=== PATIENT | female | born 1980 | race Caucasian/White ===

== ENCOUNTER 2019-07-16 06:17 | Day surgery (SDC) | payer OTHER ==
[~2019-07-16] VITALS: Ht 160 cm; Wt 79.4 kg
[~2019-07-16 06:17] MED LIST: ACETAMINOPHEN325 MG PO; BUPRENORPHIN-N1 EACH SL; HYDROCODON-ACE1 EAC7 PO
[2019-07-16 07:01] LABS: HCG SERUM NEGATIVE (NEGATIVE)
[2019-07-16 07:14] LABS: HEMATOCRIT 42.8 % (36.0-48.0); HEMOGLOBIN 14.1 g/dL (12-16); MCH 29.7 pg (26.0-34.0); MCHC 32.9 g/dL (31.0-37.0); MCV 90.1 fL (80.0-100.0); MEAN PLATELET VOLUME 10.9 fL (7.4-10.4); RBC 4.75 10x6/uL (4.00-5.40); RDW 13.3 % (11.5-14.5); WBC 4.4 10x3/uL (4.8-10.8)
[2019-07-16 07:24] VITALS: BP 111/66; Ht 160 cm; Wt 79.4 kg
[2019-07-16] MEDS ORDERED: ELIQUIS2.5 MG PO (10:03)
--- NOTE | 2019-07-16 11:25 | NUR ---
PT STATES PAIN OF 12/31. CALLED DR ROSE TO INFORM HIM OF PT'S STATUS. HE ORDERED PERCOCET 10 PO. WILL ADMINISTER PAIN MED.
--- NOTE | 2019-07-16 12:35 | NUR ---
PT'S PAIN LEVEL UNCONTROLLED BY PERCOCET/BLOCK/DILAUDID. CALLING DR. ROSE TO INFORM HIM OF PT'S STATUS.
--- NOTE | 2019-07-16 14:16 | OP ---
PATIENT NAME: THOMAS HIGGINS MEDICAL RECORD: [id number] :80 LOCATION:[facility] ADMISSION DATE: SURGEON: MATHEW ROSE DO DATE OF OPERATION: 07/16/2019 PROCEDURE PERFORMED: Bilateral distal fibula open reduction internal fixation with syndesmotic fixation. PREOPERATIVE DIAGNOSIS: Bilateral distal fibula fractures. POSTOPERATIVE DIAGNOSIS: Bilateral distal fibula fractures. INDICATIONS: Ms. Higgins is a 38-year-old female who fell while doing lawn work and fractured both of her ankles. As she had been walking around on them and had continued pain and got x-rays and saw that she had both of them fractured, the right was displaced more so than the left, but due to factor of bilateral total knee we need to fix both of them and she will be nonweightbearing for about 4-6 weeks and that we would need to fix them and she would be in pain due to the fact that she was on Suboxone. Pain control will be an issue. She was aware of the risks including infection, bleeding, damage to nerves and vessels, need for further surgery, blood clots, and even and she signed the consent. Also aware of the fact of nonunion, malunion, continued pain and damage to the superficial peroneal nerve. I specifically informed her about that and signed the consent. SURGEON: Mathew Rose DO DESCRIPTION OF PROCEDURE: The patient received block by anesthesia in the preoperative area, was taken to the operative suite, laid in supine position, given general anesthetic, given 2 grams of Ancef preoperatively. The bilateral lower extremities were prepped and draped in sterile fashion. We then covered the left wound and began with the right. An Esmarch was used to exsanguinate the right lower extremity. Prior to this, a timeout was performed, everyone was in agreeance with the correct side, site, patient and procedure. We then inflated the tourniquet to 350 mmHg and it was up for 24 minutes on the right side. The incision was then made on the lateral aspect. Careful dissection was made down to the fibula. The superficial peroneal nerve was encountered, but it was retracted out of the way anteriorly. I then made a reduction after cleaning out the fracture site and put the plate on laterally, the Anneliese stainless steel plate. I then locked distally in one of the shaft and locked the most proximal hole. I then stressed the ankle with the medial clear space with external rotation and dorsiflexion, medial clear space did open up. After seeing that, I used a clamp to clamp the joint down and then put a ZipTight across synching that down. I then cut that and did an x-ray to stress view again and did not open up medially. We then let the tourniquet down on the right, irrigated out and the site was closed by Kaveh Davidson, certified surgical event marketing assistant. A lateral x-ray was also taken. The site was closed with 2-0 Vicryl in an interrupted fashion and a ZipLine was placed on the skin. We then addressed the left side and tourniquet was inflated after exsanguinating the left lower extremity. Careful dissection was made down to the fibular fracture, plate was put on and once it was seemed to be in good position, locked distally and then proximally. Used 2 cortical screws and one locking screw. I again stressed the ankle and it also widened medially and then did the same process in clamping it across and then put a ZipTight across, cinching it down nicely, stressed again and not open medially. We then got a lateral and everything seemed to be in OPERATIVE REPORT [id number] THOMAS HIGGINS good position. Tourniquet was let down at 23 minutes on the left and been up at 350 mmHg. Then Kaveh Davidson again irrigated and closed the left side using the same manner with 2-0 Vicryl in an inverted interrupted fashion. ZipLine placed on the incision. I then dressed both sides with Adaptic, 4 x 4's, ABD on the heel and over the incision, cast padding and then a 4 x 30 splint was placed on the patient and secured with 6-inch Avel wrap on both sides. She was then awakened and taken to recovery in stable condition. BLOOD LOSS: Minimal. COMPLICATIONS: None. TRANSINT:[id number] Voice Confirmation ID: [id number] DOCUMENT ID: [id number] MATHEW ROSE DO at 1416 CC: [id number] DICTATION DATE: 07/16/19 1002 GWOT IA/ILO INTELLIGENCE SUPPORT: 07/16/19 [id number] [place] [address]
--- NOTE | 2019-07-16 14:33 | NUR ---
PHYSICAL THERAPY WAS CALLED TO HELP PT INTO WC AND INTO CAR. PT ABLE TO TEACH REGARDING NON-WEIGHT BEARING AND TRANSFERRING INTO CHAIR FROM BED. PT LEFT UNIT VIA WC AT 1410.
== END 2019-07-16 14:10 | disposition home or self-care (01) ==
LOC: D.PAN 06:17 → D.OPS 07:45 → D.PAN 07:45
PROVIDERS: Anesthesiology; ATTEND Orthopaedic Surgery
DX: S82.61XA Displaced fracture of lateral malleolus of right fibula, initial encounter for closed fracture (principal); S82.62XA Displaced fracture of lateral malleolus of left fibula, initial encounter for closed fracture; X58.XXXA Exposure to other specified factors, initial encounter; M25.571 Pain in right ankle and joints of right foot; M25.572 Pain in left ankle and joints of left foot; F17.200 Nicotine dependence, unspecified, uncomplicated

== ENCOUNTER 2020-05-03 15:16 | Inpatient (IN) | payer OTHER ==
[~2020-05-03] VITALS: Ht 160 cm; Wt 90.7 kg
--- NOTE | ~2020-05-03 | HEMODYNAMI ---
PATIENT:THOMAS HIGGINS MEDICAL RECORD: [id number] : 80 [id number] ADMISSION DATE: 05/03/20 Generatedon:111:12 Patient name: THOMAS HIGGINS Patient #: [id number] SSN: DO B: 1980 Date of study: 05/09/2020 Page: Of Hemodynamic Procedure Report Patient Data Patient Demographics First Name: THOMAS Gender: Female Last Name: GISELA : 1980 Patient #: [id number] Age: 39 year(s) Race: Unknown Additional ID: [id number] Contact details Address: [address] [place] [address] State: [place] City: [facility] Zip code: [address] Past Medical History Allergies: No known allergies Admission Admission Data Admission Date: 05/03/2020 Admission Time: 15:16 Room #: .2233 Height (in.): 63 BSA: 1.93 (m2) Height (cm.): 160.02 BMI: 35.25 (kg/m2) Weight (lbs.): 199 Weight (kg.): 90.26 Procedure Procedure Types Cath Procedure Peripheral Cath Diagnostic Procedure PICC PICC Line Placement Procedure Description Procedure Date Procedure Date: 05/09/2020 Procedure Start Time: 10:56 Procedure Staff Name Function Marisa Alexander RT Monument Mason Matt Russell MD Performing Physician ANN DENNIS RT Scrub Chacho MURDOCK RN Nurse Procedure Data Cath Procedure Fluoroscopy Diagnostic fluoroscopy Total fluoroscopy Time: 0.3 time: 0.3 min min Diagnostic fluoroscopy Total fluoroscopy dose: 2 dose: 2 mGy mGy Hemodynamics Rest BSA: 1.93 (m2) O2 Consumption: Estimated: 262.48 (ml/min) O2 Consumption indexed : Estimated:136 (ml/min/m) Pre Cath Intra NCS Post Cath Procedure Log Time Note 10:41:11 Patient Height : 63 inches 10:41:28 Patient Weight : 199 lbs 10:42:04 Time tracking: Regular hours (M-F 7:00 - 5:00) 10:42:18 Patient received from Med/Surg to IR Alert and oriented. Tansferred to table in Supine position. 10:42:31 Patient allergic to No known allergies 10:42:43 Right Arm area was prepped with chlora-prep and draped in sterile fashion 10:42:49 - 10:43:10 Use device set PICC 10:43:13 SHIELD Sorbaview ([id number]) opened to sterile field. 10:43:14 Sterile Angiographic Pack opened to sterile field. 10:43:15 Bag Decanter ([id number]) opened to sterile field. 10:43:24 - 10:56:02 Physician arrived 10:56:03 Final Timeout: patient, procedure, and site verified with staff and physician. All members of the team are in agreement. 10:56:03 --------ALL STOP TIME OUT------ 10:56:30 Procedure started. 10:56:31 Full Disclosure recording started 10:56:37 Local anesthetic to right arm with Lidocaine 1% by Matt Russell MD.INITIAL ACCESS ONLY 11:00:07 PowerPICC 5Fr double lumen catheter opened to sterile field. 11:02:00 PICC line was trimmed to 35cm and advanced to the superior vena cava.Position verified under fluoroscopy. 11:03:56 SUTURE ETHILON 2-0 BLK MONO FS opened to sterile field. 11:05:01 Procedure ended.(Physican Out) 11:05:05 Fluoroscopy time 00.30 minutes. 11:05:09 Fluoroscopy dose: 2 mGy 11:05:09 Flurop Dose total: 2 11:05:25 Procedure and supply charges have been captured, reviewed, submitted an d are correct. 11:05:57 Report given to Med/Surg. 11:06:19 Full Disclosure recording stopped Device Usage Item Name Manufacture Quantity Catalog Hospital Part Current Minimal Lot# / Number Charge Number Stock Stock Serial# Code VICK Centurion 1 [id number] 5 Sorbaview ([id number]) Sterile Cardinal 1 [id number] [id number] 5 Angiographic Health Pack Bag Decanter Microtek 1 [id number] [id number] [id number] 5 () Medical Inc. PowerPICC Bard 1 [id number] 262923 911766 [id number] 5 5Fr double lumen catheter SUTURE Ethicon 1 [id number] 5 ETHILON 2-0 BLK MONO FS Signature Audit [place] Stage Time Signature Unsigned Intra-Procedure 05/09/2020 Marisa Alexander RT(R) 11:07:51 AM RT(R) 05/09/2020 11:11:03 AM Intra-Procedure 05/09/2020 Marisa Alexander 11:12:06 AM RT(R) [facility] [address] [place] [address]
--- NOTE | ~2020-05-03 | HEMODYNAMI ---
PATIENT:THOMAS HIGGINS MEDICAL RECORD: [id number] : 80 LOCATION:[facility] ADMISSION DATE: 05/03/20 Generatedon:111:36 Patient name: THOMAS HIGGINS Patient #: [id number] SSN: DO B: 1980 Date of study: 05/04/2020 Page: Of Hemodynamic Procedure Report Patient Data Patient Demographics Procedure consent was obtained First Name: THOMAS Gender: Female Last Name: GISELA : 1980 Patient #: [id number] Age: 39 year(s) Race: Unknown Additional ID: [id number] Contact details Address: [address] [place] [address] State: [place] City: [facility] Zip code: [address] Admission Admission Data Admission Date: 05/03/2020 Admission Time: 15:16 Room #: D.2233 Procedure Procedure Types Cath Procedure Peripheral Cath Diagnostic Procedure Miscellaneous Procedure Description Procedure Date Procedure Date: 05/04/2020 Procedure Start Time: 11:33 Procedure Staff Name Function José Miguel Moctezuma MD Performing Physician Marco Antonio Cabral RT Monitor ANN DENNIS RT Scrub Bailey Avendaño RN Nurse Marielena Brown RN Nurse Procedure Data Cath Procedure Fluoroscopy Diagnostic fluoroscopy Total fluoroscopy Time: 0.4 time: 0.4 min min Diagnostic fluoroscopy Total fluoroscopy dose: 5 dose: 5 mGy mGy Hemodynamics Rest Pre Cath Intra NCS Post Cath Procedure Log Time Note 11:11:18 PICC 11:11:20 Time tracking: Regular hours (M-F 7:00 - 5:00) 11:11:24 Marco Antonio STEINER (R) (CV) sent for patient. Start room use. 11:11:48 Patient received from Med/Surg to IR Alert and oriented. Tansferred to table in Supine position. 11:11:50 Signed procedure consent form obtained from patient. 11:11:51 Pre-procedure instructions explained to patient. 11:11:53 Use device set IR Diagnostic 11:11:55 Bag Decanter () opened to sterile field. 11:11:56 Sterile Angiographic Pack opened to sterile field. 11:11:56 Tegaderm 4 x 4 ([id number]) opened to sterile field. 11:12:15 PowerPICC 5Fr double lumen catheter opened to sterile field. 11:12:17 SHIELD Sorbaview ([id number]) opened to sterile field. 11:12:33 Pre-op teaching completed and patient verbalized understanding. 11:26:37 Right Arm area was prepped with chlora-prep and draped in sterile fashion 11::39 --------ALL STOP TIME OUT------ 11::39 Final Timeout: patient, procedure, and site verified with staff and physician. All members of the team are in agreement. 11:26:45 Sedation plan: Local Anesthetic Medication:Lidocaine 11:26:54 Procedure started. 11:27:05 Full Disclosure recording started 11:33:00 Local anesthetic to right arm with Lidocaine 1% by José Miguel Moctezuma MD.INITIAL ACCESS ONLY 11:33:04 Venous access obtained using ultrasound guidance. 11:33:13 PICC line was trimmed to 33cm and advanced to the superior vena cava.Position verified under fluoroscopy. 11:33:55 Procedure ended.(Physican Out) 11:35:13 Fluoroscopy time 00.40 minutes. 11:35:17 Fluoroscopy dose: 5 mGy 11:35:17 Flurop Dose total: 5 11:35:54 RT ARM STABLE STATLOCK BI PATCH AND SORBA VIEW DRESSING APPLIED 11:35:59 Report given to Med/Surg. 11:36:03 Patient transfered to Med/Surg with Bed. Device Usage Item Name Manufacture Quantity Catalog Hospital Part Current Minimal Lot# / Number Charge Number Stock Stock Serial# Code Bag Decanter Microtek 1 [id number] 5 () Medical Inc. Sterile Cardinal [address] [id number] 5 Angiographic Health Pack Tegaderm 4 x 3M 1 1626W [id number] [id number] [id number] 5 4 (1626W) PowerPICC Bard 1 [id number] 338921 843580 149273 5 5Fr double lumen catheter SHIELD Centurion 1 [id number] 746303 861106 [id number] 5 Sorbaview ([id number]) Signature Audit Melvin Stage Time Signature Unsigned Intra-Procedure 05/04/2020 Marco Antonio 11:36:24 AM [facility] (CV) [facility] [address] [place] [address]
[~2020-05-03 15:16] MED LIST changes: +ELIQUIS2.5 MG PO
[2020-05-03] MEDS ORDERED: CELEXA20 MG PO (15:54)
[2020-05-03] MEDS ORDERED: SUBOXONE 2 MG-01 TAB SL (15:54)
[2020-05-03 16:02] VITALS: BMI 35.5
[2020-05-03 16:06] LABS: HCG URINE NEGATIVE (NEGATIVE)
[2020-05-03 16:36] LABS: BASOPHILS 0.4 % (0-2); EOSINOPHILS 0.3 % (0-7); HEMATOCRIT 42.7 % (36.0-48.0); HEMOGLOBIN 14.4 g/dL (12-16); IMMATURE GRANULOCYTES 0.3 % (0-5); LYMPHOCYTE ABS# 1.55 10x3/uL (1.18-3.74); LYMPHOCYTES 22.5 % (15-50); MCH 30.6 pg (26.0-34.0); MCHC 33.7 g/dL (31.0-37.0); MCV 90.9 fL (80.0-100.0); MEAN PLATELET VOLUME 12.1 fL (7.4-10.4); MONOCYTES 4.5 % (2-11); NEUTROPHIL ABS# 4.97 10x3/uL (1.56-6.13); PLATELET COUNT 259 10x3/uL (130-400); RDW 13.7 % (11.5-14.5); WBC 6.9 10x3/uL (4.8-10.8)
[2020-05-03 16:54] LABS: C-REACTIVE PROTEIN 1.5 mg/dL (0.0-0.9); CALC OSMOLALITY 264 mosm/kg (275-300); CALCIUM 9.5 mg/dL (8.5-10.1); CARBON DIOXIDE 29.2 mmol/L (21.0-32.0); CHLORIDE - SERUM 100 mmol/L (98-107); CREATININE - SERUM 0.4 mg/dL (0.6-1.3); GLUCOSE 92 mg/dL (74-106); SODIUM 133 mmol/L (136-145); UREA NITROGEN 9 mg/dL (7-18); eGFR NON AFRICAN AMERICAN > 90 mL/min (90-120)
[2020-05-03 17:50] LABS: ERYTHROCYTE SEDIMENTATION RATE 24 mm/hr (0-20)
--- NOTE | 2020-05-03 18:41 | NUR ---
PT READY FOR PH 1 D/C - ROOM NOT CLEAN ON FLOOR, SWITCHING TO PH 2 PROTOCOL
[2020-05-03 19:34] VITALS: BP 109/55
[2020-05-03 22:42] VITALS: BMI 35.5
--- NOTE | 2020-05-03 22:47 | NUR ---
I have reviewed this patient and I concur with the Shift Assessment completed by the Licensed Practical Nurse today this shift.
[2020-05-03 23:54] VITALS: BP 112/71
--- NOTE | 2020-05-04 08:15 | OP ---
PATIENT NAME: THOMAS HIGGINS MEDICAL RECORD: [id number] :80 LOCATION:D.[facility]33 ADMISSION DATE:05/03/20 SURGEON: MATHEW ROSE DO DATE OF OPERATION: 05/03/2020 PROCEDURE PERFORMED: Left ankle hardware removal with irrigation and debridement. PREOPERATIVE DIAGNOSIS: Infection of the left ankle. POSTOPERATIVE DIAGNOSIS: Infection of the left ankle. INDICATIONS: Ms. Higgins is a 39-year-old female who had ankle open reduction and internal fixation bilaterally back in June. She was doing well until just a few days ago, she started to have increased pain and swelling and then came to the clinic today and had purulent drainage out of the lateral incision of her left ankle. She was n.p.o. and came over, directly admitted to the hospital and I told her I would remove it and get cultures and she will probably be on IV antibiotics for 4-6 weeks. We would figure out what bug it was before I put on specific antibiotics. She is okay with all that and was aware of the risks including osteomyelitis, continued pain, need for further surgery, fracture, bleeding, damage to nerves and vessels in the area, blood clots and even and she signed the consent. SURGEON: Mathew Rose DO. DESCRIPTION OF PROCEDURE: The patient was taken to the operative suite after getting a block by anesthesia in preoperative area and laid in supine position, given general anesthetic and LMA was placed. The left lower extremity was then prepped and draped in sterile fashion. Timeout was performed. Everyone was in agreement with correct side, site, patient and procedure. I then began by making an incision over the old lateral incision and roge purulence poured out of the more proximal part of the incision. I then cultured it. I then removed the plate and irrigated with 3 liters normal saline, debriding at that time with a rongeur any devitalized tissue and with the rongeur also nipping at the bone, debriding it as well. I then went to the medial side and got the ZipTight button through a small incision and removed it. We then closed the medial side with 2-0 Prolene in a horizontal mattress fashion as well as the lateral side. She was then dressed with Adaptic and 4 x 4 on the medial side and placed the Prevena Plus on the lateral side. This was all secured with a cast padding and 6-inch Avel wrap. She was awakened and taken to recovery in stable condition. Antibiotics were given after getting cultures, 1 g of vancomycin. COMPLICATIONS: None. TRANSINT:[id number] Voice Confirmation ID: [id number] DOCUMENT ID: [id number] OPERATIVE REPORT [id number] THOMAS HIGGINS MICHAEL D, DO at 0815 CC: [id number] DICTATION DATE: 05/03/201749 RESEARCH MANAGEMENT ASSOCIATE: 05/04/20 0100 ADM IN [facility] [address] [id number]
--- NOTE | 2020-05-04 08:25 | NUR ---
CALLED PHARMACY FOR PATIENT'S SUBOXONE. STATES WILL BRING.
--- NOTE | 2020-05-04 09:00 | NUR ---
ALERT AND ORIENTED. ASSESSMENT COMPLETE. STATES FOOT STILL NUMB FROM SURGERY. SCD PLACED ON RIGHT LEG AND EDUCATION PROVIDED. DENIES FURTHER NEEDS. BED LOW. CALL CUELLO AND PERSONAL ITEMS IN REACH. WILL CONTINUE TO MONITOR.
[2020-05-04 09:11] VITALS: BP 148/83
--- NOTE | 2020-05-04 12:02 | NUR ---
RETURNED FROM PICC PLACEMENT. RIGHT IJ REMOVED WITH TIP INTACT PER ORDER. PRESSURE APPLIED. DRSG TO SITE C/D/I. NO BLEEDING NOTED. PATIENT INSTRUCTED TO LIE FLAT 15 MINUTES.
[2020-05-04 13:22] VITALS: BP 115/54
[2020-05-04 16:48] VITALS: BP 119/59
[2020-05-04 20:00] VITALS: BP 100/49
[2020-05-05] VITALS: BP 107/59
[2020-05-05 04:00] VITALS: BP 104/64
--- NOTE | 2020-05-05 04:43 | NUR ---
I have reviewed this patient and I concur with the Shift Assessment completed by the Licensed Practical Nurse today this shift.
[2020-05-05 08:26] VITALS: BP 109/67
[2020-05-05 11:58] VITALS: BP 128/69
[2020-05-05 12:57] VITALS: Ht 160 cm; Wt 90.7 kg
[2020-05-05 16:00] VITALS: BP 103/66
--- NOTE | 2020-05-05 19:10 | NUR ---
RECEIVED REPORT, ASSUMED CARE, BREATHING EVEN UNLABORED, CALL LIGHT IN REACH, BED LOWEST POSITION, DENIES NEEDS, IV PATENT, ENCOURAGED PT TO NOTIFY STAFF WITH ANY NEEDS
[2020-05-05 20:09] VITALS: BP 109/52
[2020-05-06 00:52] VITALS: BP 93/54
--- NOTE | 2020-05-06 04:21 | NUR ---
I have reviewed this patient and I concur with the Shift Assessment completed by the Licensed Practical Nurse today this shift.
[2020-05-06 05:14] VITALS: BP 120/68
[2020-05-06 06:08] LABS: CREATININE - SERUM 0.7 mg/dL (0.6-1.3); VANCOMYCIN - TROUGH 19.8 ug/mL (10.0-20.0)
--- NOTE | 2020-05-06 07:42 | NUR ---
RESTING IN BED WITH EYES OPEN, ALERT AND ORIENTED. PICC LOCATED TO RIGHT ARM RUNNING 1/2NS@ 50ML/HR. REPORTS PAIN 12/31, ADMINISTERED TORADOL PER DRS ORDERS. DENIES FURTHER NEEDS, WILL CONT TO MONITOR.
[2020-05-06 08:30] VITALS: BP 107/62
--- NOTE | 2020-05-06 11:56 | NUR ---
PT REPORTS PAIN /10, ADMINISTERED VISTERIL PER DRS ORDERS.
[2020-05-06 12:47] VITALS: BP 116/51
[2020-05-06 17:11] VITALS: BP 92/55
--- NOTE | 2020-05-06 19:05 | NUR ---
RECEIVED REPORT, ASSUMED CARE, BREATHING EVEN UNLABORED, CALL LIGHT IN REACH, BED LOWEST POSITION, DENIES NEEDS, IV PATENT, ENCOURAGED PT TO NOTIFY STAFF WITH ANY NEEDS
[2020-05-06 20:00] VITALS: BP 95/53
[2020-05-07] VITALS: BP 86/35
--- NOTE | 2020-05-07 01:19 | NUR ---
I have reviewed this patient and I concur with the Shift Assessment completed by the Licensed Practical Nurse today this shift.
[2020-05-07 04:00] VITALS: BP 85/40
[2020-05-07 05:16] LABS: BASOPHILS 0.4 % (0-2); EOSINOPHILS 3.1 % (0-7); HEMATOCRIT 33.3 % (36.0-48.0); HEMOGLOBIN 10.6 g/dL (12-16); LYMPHOCYTE ABS# 1.54 10x3/uL (1.18-3.74); LYMPHOCYTES 31.6 % (15-50); MCH 29.1 pg (26.0-34.0); MCHC 31.8 g/dL (31.0-37.0); MCV 91.5 fL (80.0-100.0); MEAN PLATELET VOLUME 11.6 fL (7.4-10.4); MONOCYTES 6.6 % (2-11); NEUTROPHIL ABS# 2.84 10x3/uL (1.56-6.13); NEUTROPHILS 58.3 % (40-80); RBC 3.64 10x6/uL (4.00-5.40); RDW 13.9 % (11.5-14.5); WBC 4.9 10x3/uL (4.8-10.8)
[2020-05-07 05:27] LABS: PLATELET COUNT 159 10x3/uL (130-400)
[2020-05-07 05:49] LABS: CALC OSMOLALITY 275 mosm/kg (275-300); CALCIUM 7.8 mg/dL (8.5-10.1); CARBON DIOXIDE 25.4 mmol/L (21.0-32.0); CHLORIDE - SERUM 107 mmol/L (98-107); CREATININE - SERUM 0.7 mg/dL (0.6-1.3); GLUCOSE 78 mg/dL (74-106); POTASSIUM - SERUM 3.8 mmol/L (3.5-5.1); SODIUM 139 mmol/L (136-145); UREA NITROGEN 11 mg/dL (7-18); eGFR NON AFRICAN AMERICAN > 90 mL/min (90-120)
--- NOTE | 2020-05-07 07:34 | NUR ---
PT RESTING IN BED WITH EYES OPEN CALL LIGHT IN REACH WILL MONITER
[2020-05-07 08:09] VITALS: BP 117/63
[2020-05-07 13:58] VITALS: BP 131/84
[2020-05-07 17:02] VITALS: BP 124/64
--- NOTE | 2020-05-07 18:00 | NUR ---
PT RESTING IN BED WITH EYES OPEN CALL LIGHT IN REACH WILL MONITER
[2020-05-07 20:00] VITALS: BP 127/76
--- NOTE | 2020-05-07 22:52 | NUR ---
PT CALLED AT 1900 STATING SHE HAS A LIGHT RASH TO R ARM. STATED HAD SAME RASH AFTER 1ST DOSE OF ANCEF GIVEN. BENADRYL 25MG IVP GIVNE AT 1910 HRS. ASSESSMENT COMPLETED AT 1945 HRS. VSS. ALERT AND ORIENTED TO PERSON,PLACE AND TIME. [place]. PALPABLE PERIPHERAL PULSES. PICC LINE TO R ARM WITH 1/2NS AT 50CC/HR. IV PATENT. LUNGS CTA. ABD SOFT WITH ACTIVE BS NOTED. RASH TO INNER R ARM DIMINISHED AFTER BENADRYL ADMINISTRATION. PT DENIED ANY SOB OR DIFFICULTY SWALLOWING. RASH ONLY FOUND ON R ARM. WOUND VAC TO OUTER L ANKLE WITH SCANT BROWN EXUDATE NOTED. DRESSING CLEAN, DRY AND INTACT. PM MEDS GIVEN. DR MIRANDA PAGED AT 2215 HRS. RETUNED PAGE AT 2019 HRS. INFORMED OF PT'S RASH TO R ARM WITH ANCEF AND PT'S DENIAL OF ANY SOB OR THROAT SWELLING. INFORMED RASH DIMINSHED AFTER BENADRYL ADMINISTRATION. DR MIRANDA STATED TO GIVEN BENADRYL PRIOR TO ANCEF ADMINISTRATION. PT CURRENTLY WATCHNG TV. SR UP X1, CALL LIGHT WITHIN REACH.
[2020-05-08] VITALS: BP 91/34
--- NOTE | 2020-05-08 00:36 | NUR ---
PT RESTING WITH EYES CLOSED. RESP EVEN AND REGULAR. SR UP X1, CALL LIGHT WITHIN REACH.
--- NOTE | 2020-05-08 02:03 | NUR ---
PT RESTING WITH EYES CLOSED. RESP EVEN AND REGULAR. SR U P X1, CALL LIGHT WITHIN REACH.
[2020-05-08 04:00] VITALS: BP 125/86
--- NOTE | 2020-05-08 04:58 | NUR ---
NO RASH NOTED AFTER BENADRYL ADMINISTRATION. REQUESTS TORADOL FOR C/O INCISIONAL PAIN. SR UP X1, CALL LIGHT WITHIN REACH.
--- NOTE | 2020-05-08 05:20 | NUR ---
PT HAS C/O N/V AND ABD PAIN. TORADOL 15MG, ZOFRAN 4MG IVP GIVEN.
[2020-05-08 06:08] LABS: BASOPHILS 0.3 % (0-2); EOSINOPHILS 2.6 % (0-7); HEMATOCRIT 39.1 % (36.0-48.0); HEMOGLOBIN 12.7 g/dL (12-16); LYMPHOCYTE ABS# 2.05 10x3/uL (1.18-3.74); MCH 29.3 pg (26.0-34.0); MCHC 32.5 g/dL (31.0-37.0); MCV 90.1 fL (80.0-100.0); MEAN PLATELET VOLUME 11.7 fL (7.4-10.4); MONOCYTES 7.2 % (2-11); NEUTROPHIL ABS# 3.54 10x3/uL (1.56-6.13); NEUTROPHILS 56.9 % (40-80); RBC 4.34 10x6/uL (4.00-5.40); RDW 13.6 % (11.5-14.5)
--- NOTE | 2020-05-08 06:35 | NUR ---
PT CURRENTLY RESTING WITH EYES CLOSED. RESP EVEN AND REGULAR. VSS THROUGHOUT NIGHT. NEEDS MET; WILL CONTINUE TO MONITOR.
[2020-05-08 06:50] LABS: ANION GAP 12.4 mmol/L (8-16); CARBON DIOXIDE 26.5 mmol/L (21.0-32.0); PLATELET COUNT 194 10x3/uL (130-400); POTASSIUM - SERUM 3.9 mmol/L (3.5-5.1); WBC 6.2 10x3/uL (4.8-10.8)
[2020-05-08 06:56] LABS: CREATININE - SERUM 0.9 mg/dL (0.6-1.3)
--- NOTE | 2020-05-08 07:32 | NUR ---
PATIENT C/O ABD CRAMPS AND N/V ALL NIGHT STATES SHE CAN NOT HANDLE ANYMORE. PT HAD ZOFRAN AND TORADOL EARLIER TOO SOON TO ADMINISTER, DID GIVE PRN PAIN MEDICTION. CONTINUE WITH PLAN OF CARE
--- NOTE | 2020-05-08 08:20 | NUR ---
RECEIVED WRITTEN ORDER FOR PHENEGREN ADMINISTERED WITH AM MEDS PT THEN ASKED FOR SOMETHING FOR ANXIETY. RECEIVED ORDER FOR .5 ATIVAN TID PRN. CONTINUE WITH PLAN OF CARE
[2020-05-08 09:12] VITALS: BP 167/86
--- NOTE | 2020-05-08 11:39 | NUR ---
PATIENT REQUESTED PAIN MEDICATION STATING PAIN IS AT A 10, ADMINISTERED PRN MEDICATION, CONTINUE WITH PLAN OF CARE
--- NOTE | 2020-05-08 11:43 | NUR ---
PATIENT REQUESTED ANXIETY MEDICATION WELL, INFORMED HER SHE CAN ONLY HAVE IT 3 TIMES A DAY NEEDED AND IF SHE TAKES ONE NOW SHE WILL ONLY HAVE ONE LEFT FOR THE REST OF THE EVBENING. PATIENT CLOSED EYES IF ASLEEP AND NOT LISTENING. CL IN REACH. CONTINUE WITH PLAN OF CARE
[2020-05-08 12:36] VITALS: BP 173/96
--- NOTE | 2020-05-08 16:32 | NUR ---
PATIENT PICC LINE DRESSING CAME OFF, CHANGED DRESSING AND RESTARTED FLUIDS. NO OTHER NEEDS AT THIS TIME. CONTINUE WITH PLAN OF CARE
[2020-05-08 17:13] VITALS: BP 196/98
--- NOTE | 2020-05-08 18:45 | NUR ---
I have reviewed this patient and I concur with the Shift Assessment completed by the Licensed Practical Nurse today this shift.
--- NOTE | 2020-05-08 19:30 | NUR ---
RECEIVED BEDSIDE REPORT. PT LAYING IN BED A&O X4. PICC LINE TO RIGHT UPPER ARM, PATENT AND INFUSING, NO REDNESS OR SWELLING. INCISION TO LEFT ANKLE, DRSG C/D/I, RODERICK WRAP IN PLACE, WOUND VAC PATENT AND IN PLACE. PT ABLE TO AMBUALTE WITH ASSIST. EDUCATED PT ON CL AND NEEDS, VERBALIZED UNDERSTANDING. BED LOW, CL IN REACH.
[2020-05-08 21:32] VITALS: BP 141/83
--- NOTE | 2020-05-08 22:26 | NUR ---
ORIENTATION & MOBILITY SPECIALIST ASSISTED PT WITH SHOWER AND FULL LININ AND GOWN CHANGE, TOLERATED WELL. BED LOW, CL IN REACH.
--- NOTE | 2020-05-08 23:00 | NUR ---
PT C/O ANXIETY, PROVIDED MEDS PER ORDER, TOLERATED WELL. BED LOW, CL IN REACH.
[2020-05-09 00:23] VITALS: BP 115/54
--- NOTE | 2020-05-09 01:02 | NUR ---
PT LAYING IN BED, EYES CLOSED EVEN RESPIRATIONS. BED LOW, CL IN REACH.
--- NOTE | 2020-05-09 04:00 | NUR ---
PT C/O PAIN 8/10, SHARP IN LEFT ANKLE, PROVIDED MEDS PER ORDER, TOLERATED WELL. BED LOW, CL IN REACH.
[2020-05-09 04:23] VITALS: BP 119/55
--- NOTE | 2020-05-09 04:49 | NUR ---
ATTEMPTED TO FLUSH PICC LINE TO UPPER RIGHT ARM, WILL NOT FLUSH ON ONE SIDE, MINIMALLY FLUSHES ON OTHER SIDE. PT STATES THAT WHEN THE DRESSING WAS CHANGED SHE FELT THE CATHETER BEING PULLED, SHE DENIES ANY PAIN AT SITE. NO REDNESS OR SWELLING. ENTERED CONSULT TO MD TO ASSESS PICC LINE. WILL CONTINUE TO MONITOR.
[2020-05-09 07:33] LABS: CALC OSMOLALITY 270 mosm/kg (275-300); CALCIUM 8.7 mg/dL (8.5-10.1); CARBON DIOXIDE 27.2 mmol/L (21.0-32.0); CHLORIDE - SERUM 103 mmol/L (98-107); CREATININE - SERUM 0.7 mg/dL (0.6-1.3); GLUCOSE 87 mg/dL (74-106); POTASSIUM - SERUM 3.5 mmol/L (3.5-5.1); SODIUM 137 mmol/L (136-145); eGFR NON AFRICAN AMERICAN > 90 mL/min (90-120)
[2020-05-09 07:35] LABS: UREA NITROGEN 7 mg/dL (7-18)
[2020-05-09 08:32] VITALS: BP 133/80
[2020-05-09 09:24] LABS: BASOPHILS 0.2 % (0-2); EOSINOPHILS 0.8 % (0-7); HEMATOCRIT 39.3 % (36.0-48.0); HEMOGLOBIN 13.2 g/dL (12-16); IMMATURE GRANULOCYTES 0.2 % (0-5); LYMPHOCYTE ABS# 1.28 10x3/uL (1.18-3.74); LYMPHOCYTES 25.4 % (15-50); MCH 29.8 pg (26.0-34.0); MCHC 33.6 g/dL (31.0-37.0); MCV 88.7 fL (80.0-100.0); MEAN PLATELET VOLUME 11.4 fL (7.4-10.4); MONOCYTES 10.1 % (2-11); NEUTROPHIL ABS# 3.19 10x3/uL (1.56-6.13); NEUTROPHILS 63.3 % (40-80); PLATELET COUNT 171 10x3/uL (130-400); RBC 4.43 10x6/uL (4.00-5.40); RDW 13.5 % (11.5-14.5)
[2020-05-09] MEDS ORDERED: Vibramycin 100 MG/D5 IV (10:47)
[2020-05-09] MEDS ORDERED: VISTARIL50 MG PO (10:47)
[2020-05-09] MEDS ORDERED: ATIVAN0.5 MG PO (10:48)
[2020-05-09] MEDS ORDERED: ZOFRAN ODT4 MG/UDTAB PO (11:17)
--- NOTE | 2020-05-09 12:19 | MORECARE ---
CASE MANAGEMENT DISCHARGE SUMMARY PATIENT: THOMAS HIGGINS UNIT: [id number] ADM DATE: 05/03/20 AGE: 39 : [birth year] SEX: F ROOM/BED: D.2233 AUTHOR: TASHA VELAZCO PHYSICIAN: REFERRING PHYSICIAN: MARYJANE ROSE DO DATE OF SERVICE: 05/09/20 Discharge Plan Patient Name: THOMAS HIGGINS Facility: [facility]:[place] : 1980 Planned Disposition: Anticipated Discharge Date: Discharge Date: Expected LOS: Initial Reviewer: [email or web address] Initial Review Date: 05/03/2020 Generated: 05/09/20 1:18 pm Comments DCP- Discharge Planning Updated by [email or web address]: Lavern Rendon on 05/09/20 11:[address] Patient Name: THOMAS HIGGINS Admission Status: Elective Accout number: [id number] Admission Date: 05-03-2020 : 1980 Admission Diagnosis:PYOGENIC ARTHRITIS, UNSPECIFIED Attending: MARYJANE ROSE Current LOS: 6 Anticipated DC Date: Planned Disposition: Primary Insurance: [employer]ED MEDICA[employer] Discharge Planning Comments: CM MET WITH PATIENT AT BEDSIDE AFTER OBTAINING VERBAL CONSENT. DISCUSSED AVAILABILITY/NEEDS OF HOME HEALTH, REHAB, AND MEDICAL EQUIPMENT. PATIENT WILL NEED IV ANTIBIOTICS AND HOME HEALTH. REFERRAL FAXED TO [facility] FOR IV ANTIBIOTICS AND CARE 4 FOR HOME HEALTH. WAITING CALL BACK TO SEE IF IV ANTIBIOTICS CAN BE SET UP TODAY AND HOME HEALTH START OF CARE TOMORROW. PATIENT VERBALLY AGREES TO BOTH COMPANIES FOR DC. CM TO FOLLOW AND ASSIST NEEDED. Travel Counselor: Lavern Rendon DCP- Discharge Planning Updated by [email or web address]: Lavern Rendon on 05/09/20 10:[address] Patient Name: THOMAS HIGGINS Admission Status: Elective Accout number: [id number] Admission Date: 05-03-2020 : 1980 Admission Diagnosis:PYOGENIC ARTHRITIS, UNSPECIFIED Attending: MARYJANE ROSE Current LOS: 6 Anticipated DC Date: Planned Disposition: Primary Insurance: [employer] MA[employer]ED MEDICAID Discharge Planning Comments: I HAVE FAXED REFERRAL TO [facility] FOR IV INFSUIONS, I M WAITING CALL BACK TO SEE WHEN THEY CAN START. CM FOLLOWING. Travel Counselor: Lavern Rendon DCPIA - Discharge Planning Initial Assessment Updated by [email or web address]: Lavern Rendon on 05/09/20 12:16 pm * Is the patient Alert and Oriented? Yes * PCP MARGARITALIVEN * Preadmission Environment Home with Family * ADLs Independent * Community resources currently utilized None * Additional services required to return to the preadmission environment? Yes * Can the patient safely return to the preadmission environment? Yes * Has this patient been hospitalized within the prior 30 days at any hospital? No External Providers External Provider: [facility] Next Contact Date: Service Request Date: Service Type: Resolution: Reviewer: Comments: External Provider: [facility] Next Contact Date: Service Request Date: Service Type: Resolution: Reviewer: Comments: Patient Name: THOMAS HIGGINS Page [phone] at 1219 All edits/amendments must be made on the electronic document DICTATION DATE: 05/09/201217 MARINE DRILLER: ANSLEY 05/09/201217 RPT#: [id number] DC DATE: STATUS: ADM IN [facility] [address] [place] [address] END OF REPORT
--- NOTE | 2020-05-09 12:45 | MORECARE ---
CASE MANAGEMENT DISCHARGE SUMMARY PATIENT: THOMAS HIGGINS UNIT: [id number] ADM DATE: 05/03/20 AGE: 39 : 80 SEX: F ROOM/BED: D.2233 AUTHOR: TASHA VELAZCO PHYSICIAN: REFERRING PHYSICIAN: MARYJANE ROSE DO DATE OF SERVICE: 05/09/20 Discharge Plan Patient Name: THOMAS HIGGINS Facility: [facility]:[place] : 1980 Planned Disposition: Anticipated Discharge Date: Discharge Date: Expected LOS: Initial Reviewer: [id number] Initial Review Date: 05/03/2020 Generated: 05/09/20 1:45 pm Comments DCP- Discharge Planning Updated by [email or web address]: Lavern Rendon on 05/09/20 11:[address] Patient Name: THOMAS HIGGINS Admission Status: Elective Accout number: [id number] Admission Date: 05-03-2020 : 1980 Admission Diagnosis:PYOGENIC ARTHRITIS, UNSPECIFIED Attending: MARYJANE ROSE Current LOS: 6 Anticipated DC Date: Planned Disposition: Primary Insurance: [employer] MA[employer]GED MEDICAID Discharge Planning Comments: CM MET WITH PATIENT AT BEDSIDE AFTER OBTAINING VERBAL CONSENT. DISCUSSED AVAILABILITY/NEEDS OF HOME HEALTH, REHAB, AND MEDICAL EQUIPMENT. PATIENT WILL NEED IV ANTIBIOTICS AND HOME HEALTH. REFERRAL FAXED TO [facility]* FOR IV ANTIBIOTICS AND CARE 4 FOR HOME HEALTH. WAITING CALL BACK TO SEE IF IV ANTIBIOTICS CAN BE SET UP TODAY AND HOME HEALTH START OF CARE TOMORROW. PATIENT VERBALLY AGREES TO BOTH COMPANIES FOR DC. CM TO FOLLOW AND ASSIST NEEDED. Play Reader: Lavern Rendon DCP- Discharge Planning Updated by [email or web address]: Lavern Rendon on 05/09/20 10:[address] Patient Name: THOMAS HIGGINS Admission Status: Elective Accout number: [id number] Admission Date: 05-03-2020 : 1980 Admission Diagnosis:PYOGENIC ARTHRITIS, UNSPECIFIED Attending: MARYJANE ROSE Current LOS: 6 Anticipated DC Date: Planned Disposition: Primary Insurance: [employer] MA[employer]GED MEDICAID Discharge Planning Comments: I HAVE FAXED REFERRAL TO [facility]* FOR IV INFSUIONS, I M WAITING CALL BACK TO SEE WHEN THEY CAN START. CM FOLLOWING. Play Reader: Lavern Rendon DCPIA - Discharge Planning Initial Assessment Updated by [email or web address]: Lavern Rendon on 05/09/20 12:16 pm * Is the patient Alert and Oriented? Yes * PCP MARGARITALIVEN * Preadmission Environment Home with Family * ADLs Independent * Community resources currently utilized None * Additional services required to return to the preadmission environment? Yes * Can the patient safely return to the preadmission environment? Yes * Has this patient been hospitalized within the prior 30 days at any hospital? No External Providers External Provider: [facility] Next Contact Date: Service Request Date: Service Type: Resolution: Reviewer: Comments: Last DP export: 05/09/20 11:19 a Patient Name: THOMAS HIGGINS Page 42361 at 1245 All edits/amendments must be made on the electronic document DICTATION DATE: 05/09/20 1245 ANIMATION DIRECTOR: ANSLEY 05/09/20 1245 RPT#: [id number] DC DATE: STATUS: ADM IN [facility] [address] [place] [address] END OF REPORT
[2020-05-09 12:46] VITALS: BP 132/84
--- NOTE | 2020-05-09 15:39 | NUR ---
SPOKE TO PT IN REGARDS TO IV ABX AND UNABLE TO LEAVE DUE TO UNAVAILABILITY OF IV ABX AT THIS TIME PT VERBALIZED UNDERSTANDING. CONTINUE WITH PLAN OF CARE
[2020-05-09 17:05] VITALS: BP 152/86
--- NOTE | 2020-05-09 19:45 | NUR ---
RECEIVED BEDSIDE REPORT. PT LAYING IN BED A&O X4. PICC LINE TO RIGHT UPPER ARM, PATENT AND INFUSING, NO REDNESS OR SWELLING. INCISION TO LEFT ANKLE, DRSG C/D/I, RODERICK WRAP IN PLACE. PT ABLE TO AMBULATE AD DUONG. EDUCATED PT ON CL AND NEEDS, VERBALIZED UNDERSTANDING. BED LOW, CL IN REACH.
[2020-05-09 20:00] VITALS: BP 129/78
--- NOTE | 2020-05-09 20:50 | NUR ---
PT C/O PAIN 10/31, PROVIDED MEDS PER ORDER, TOLERATED WELL. BED LOW, CL IN REACH.
[2020-05-10] VITALS: BP 149/55
--- NOTE | 2020-05-10 02:21 | NUR ---
PT LAYING IN BED EYES CLOSED AND EVEN RESPIRATIONS. BED LOW, CL IN REACH. WILL CTM.
[2020-05-10 08:34] VITALS: BP 138/80
--- NOTE | 2020-05-10 10:36 | NUR ---
PATIENT STATES SHE FELLS BETTER TODAY THAN SHE HAS IN A LONG TIME. PAIN IN ANKLE AT A 4 TODAY. SPOUSE AT [facility], PT HOPING TO BE DC TODAY
[2020-05-10 12:57] VITALS: BP 140/78
[2020-05-10 16:38] VITALS: BP 131/75
[2020-05-10 20:00] VITALS: BP 136/71
--- NOTE | 2020-05-10 21:45 | NUR ---
PT C/O REDNESS/HIVES/IRRITATION TO PICC SITE WHERE ABX INFUSING. ABX STOPPED AND DR ROSE NOTIFIED. ORDERS ENTERED PER MD. GOLDSTEIN.
--- NOTE | 2020-05-11 04:22 | NUR ---
I have reviewed this patient and I concur with the Shift Assessment completed by the Licensed Practical Nurse today this shift.
--- NOTE | 2020-05-11 09:15 | MORECARE ---
CASE MANAGEMENT DISCHARGE SUMMARY PATIENT: THOMAS HIGGINS UNIT: [id number] ADM DATE: 05/03/20 AGE: 39 : 80 SEX: F ROOM/BED: D.2233 AUTHOR: TASHA VELAZCO PHYSICIAN: REFERRING PHYSICIAN: MARYJANE ROSE DO DATE OF SERVICE: 05/11/20 Discharge Plan Patient Name: THOMAS HIGGINS Facility: [facility]:[place] : 1980 Planned Disposition: Anticipated Discharge Date: Discharge Date: Expected LOS: Initial Reviewer: [id number] Initial Review Date: 05/03/2020 Generated: 05/11/20 10:14 am Comments DCP- Discharge Planning Updated by [email or web address]: Lavern Rendon on 05/11/20 8:[address] Patient Name: THOMAS HIGGINS Admission Status: Elective Accout number: [id number] Admission Date: 05-03-2020 : 1980 Admission Diagnosis:PYOGENIC ARTHRITIS, UNSPECIFIED Attending: MARYJANE ROSE Current LOS: 8 Anticipated DC Date: Planned Disposition: Primary Insurance: [employer] MANAGED MEDICAID Discharge Planning Comments: I SPOKE WITH FRANCINE AT [facility] TODAY AND THEY ARE CLOSED DUE TO WEATHER. I HAVE TALKED WITH LEROY NEWTON AND THEY ARE OPEN. I HAVE FAXED TO ORDER TO THEM TO SEE IF THEY CAN FILL AND GET TO US TODAY. WAITING TO HEAR BACK FROM [address] TO SEE WHEN THEY CAN SEE THIS PATIENT. THEY WERE UNABLE TO VERIFY A START DATE AT THIS TIME DUE TO INCLEMENT WEATHER. CM FOLLOWING AND ASSISTING NEEDED. Video Library Assistant: Lavern Rendon DCP- Discharge Planning Updated by [email or web address]: Lavern Rendon on 05/09/20 11:[address] Patient Name: THOMAS HIGGINS Admission Status: Elective Accout number: [id number] Admission Date: 05-03-2020 : 1980 Admission Diagnosis:PYOGENIC ARTHRITIS, UNSPECIFIED Attending: MARYJANE ROSE Current LOS: 6 Anticipated DC Date: Planned Disposition: Primary Insurance: [employer] MANAGED MEDICAID Discharge Planning Comments: CM MET WITH PATIENT AT BEDSIDE AFTER OBTAINING VERBAL CONSENT. DISCUSSED AVAILABILITY/NEEDS OF HOME HEALTH, REHAB, AND MEDICAL EQUIPMENT. PATIENT WILL NEED IV ANTIBIOTICS AND HOME HEALTH. REFERRAL FAXED TO [facility] FOR IV ANTIBIOTICS AND CARE 4 FOR HOME HEALTH. WAITING CALL BACK TO SEE IF IV ANTIBIOTICS CAN BE SET UP TODAY AND HOME HEALTH START OF CARE TOMORROW. PATIENT VERBALLY AGREES TO BOTH COMPANIES FOR DC. CM TO FOLLOW AND ASSIST NEEDED. Video Library Assistant: Lavern Rendon DCP- Discharge Planning Updated by [email or web address]: Lavern Rendon on 05/09/20 10:[address] Patient Name: THOMAS HIGGINS Admission Status: Elective Accout number: [id number] Admission Date: 05-03-2020 : 1980 Admission Diagnosis:PYOGENIC ARTHRITIS, UNSPECIFIED Attending: MARYJANE ROSE Current LOS: 6 Anticipated DC Date: Planned Disposition: Primary Insurance: [employer] MANAGED MEDICAID Discharge Planning Comments: I HAVE FAXED REFERRAL TO [facility] FOR IV INFSUIONS, I M WAITING CALL BACK TO SEE WHEN THEY CAN START. CM FOLLOWING. Video Library Assistant: Lavern Rendon DCPIA - Discharge Planning Initial Assessment Updated by [email or web address]: Lavern Rendon on 05/09/20 12:16 pm * Is the patient Alert and Oriented? Yes * PCP SULLIVEN * Preadmission Environment Home with Family * ADLs Independent * Community resources currently utilized None * Additional services required to return to the preadmission environment? Yes * Can the patient safely return to the preadmission environment? Yes * Has this patient been hospitalized within the prior 30 days at any hospital? No Last DP export: 05/09/20 11:45 a Patient Name: THOMAS HIGGINS Page 86907 at 0915 All edits/amendments must be made on the electronic document DICTATION DATE: 05/11/20913 PENSIONHOLDER INFORMATION CLERK: ANSLEY 05/11/20913 RPT#: [id number] DC DATE: STATUS: ADM IN [facility] [address] [place] [address] END OF REPORT
[2020-05-11 09:33] VITALS: BP 134/81
--- NOTE | 2020-05-11 11:31 | NUR ---
APTIENT FLUXER LIGHT, JUDY RECEIVED CALL FROM JONI CARBAJAL NEEDING ORDER FOR NEW ABX. EXPLAINED THAT NEW ORDER WAS FAXED BUT WILL DOUBLE CHECK WITH CASE MANAGEMENT AND HAVE ORDER REFAXED IF NEEDED. NO OTHER NEEDS VOICED. CONTINUE WITH PLAN OF CARE
--- NOTE | 2020-05-11 12:01 | NUR ---
Nutrition follow-up: Pt receiving a regular diet; po intake 100% of most meals Labs reviewed Wt: 199# POD#8; waiting for IV ABX for discharge PO intake good at this time Follow-up: 05/18/20
--- NOTE | 2020-05-11 12:30 | NUR ---
PATIENT IS WITHOUT DISTRESS. MONITOR FOR NEEDS
[2020-05-11 13:00] VITALS: BP 121/71
[2020-05-11 22:02] VITALS: BP 129/56
--- NOTE | 2020-05-12 04:17 | NUR ---
I have reviewed this patient and I concur with the Shift Assessment completed by the Licensed Practical Nurse today this shift.
--- NOTE | 2020-05-12 07:00 | NUR ---
AWAKE AND SITING UP IN BED. AT BEDSIDE.
--- NOTE | 2020-05-12 07:50 | NUR ---
ASSESSMENT PER FLOW SHEET. PATIENT IS WITHOUT DISTRESS. DRESSING TO LEFT ANKLE CDI. DENIES NEEDS. AT BEDSIDE.
[2020-05-12 08:23] LABS: ANION GAP 12.2 mmol/L (8-16); C-REACTIVE PROTEIN 0.6 mg/dL (0.0-0.9); CALCIUM 8.8 mg/dL (8.5-10.1); CARBON DIOXIDE 27.7 mmol/L (21.0-32.0); CREATININE - SERUM 0.9 mg/dL (0.6-1.3); POTASSIUM - SERUM 3.9 mmol/L (3.5-5.1)
[2020-05-12 08:24] LABS: BASOPHILS 0.6 % (0-2); EOSINOPHILS 3.5 % (0-7); HEMATOCRIT 35.2 % (36.0-48.0); HEMOGLOBIN 11.6 g/dL (12-16); LYMPHOCYTE ABS# 1.72 10x3/uL (1.18-3.74); LYMPHOCYTES 31.6 % (15-50); MEAN PLATELET VOLUME 11.2 fL (7.4-10.4); MONOCYTES 9.9 % (2-11); NEUTROPHIL ABS# 2.97 10x3/uL (1.56-6.13); NEUTROPHILS 54.4 % (40-80); PLATELET COUNT 196 10x3/uL (130-400); RBC 3.87 10x6/uL (4.00-5.40); RDW 13.8 % (11.5-14.5); WBC 5.5 10x3/uL (4.8-10.8)
[2020-05-12 09:27] LABS: ERYTHROCYTE SEDIMENTATION RATE 22 mm/hr (0-20)
[2020-05-12 14:08] VITALS: BP 109/63
--- NOTE | 2020-05-12 14:45 | MORECARE ---
CASE MANAGEMENT DISCHARGE SUMMARY PATIENT: THOMAS HIGGINS UNIT: [id number] ADM DATE: 05/03/20 AGE: 39 : 80 SEX: F ROOM/BED: D.2233 AUTHOR: JUAN A,DOC PHYSICIAN: REFERRING PHYSICIAN: MARYJANE ROSE DO DATE OF SERVICE: 05/12/20 Discharge Plan Patient Name: THOMAS HIGGINS Facility: [facility]:[place] : 1980 Planned Disposition: Anticipated Discharge Date: Discharge Date: Expected LOS: Initial Reviewer: [id number] Initial Review Date: 05/03/2020 Generated: 05/12/20 3:44 pm Comments DCP- Discharge Planning Updated by [email or web address]: Lavern Rendon on 05/12/20 1:[address] Patient Name: THOMAS HIGGINS Admission Status: Elective Accout number: [id number] Admission Date: 05-03-2020 : 1980 Admission Diagnosis:PYOGENIC ARTHRITIS, UNSPECIFIED Attending: MARYJANE ROSE Current LOS: 9 Anticipated DC Date: Planned Disposition: Primary Insurance: NOVASYS MANAGED MEDICAID Discharge Planning Comments: PATIENT CAN DC TO HOME AFTER EVENING DOSE OF IV ANTIBIOTICS. [facility] WILL DELIVER THE IV ANTIBIOTICS TO HER HOME TOMORROW. [address] HAS HER ON THEIR SCHEDULE TO SEE FRIDAY. CM TO FOLLOW AND ASSIST NEEDED. Loading Dock Helper: Lavern Rendon DCP- Discharge Planning Updated by [id number]: Lavern Rendon on 05/11/20 8:[address] Patient Name: THOMAS HIGGINS Admission Status: Elective Accout number: [id number] Admission Date: 05-03-2020 : 1980 Admission Diagnosis:PYOGENIC ARTHRITIS, UNSPECIFIED Attending: MARYJANE ROSE Current LOS: 8 Anticipated DC Date: Planned Disposition: Primary Insurance: NOV[employer]YS MANAGED MEDICAID Discharge Planning Comments: I SPOKE WITH FRANCINE AT [facility] TODAY AND THEY ARE CLOSED DUE TO WEATHER. I HAVE TALKED WITH [facility]ERO[facility] NEWTON AND THEY ARE OPEN. I HAVE FAXED TO ORDER TO THEM TO SEE IF THEY CAN FILL AND GET TO US TODAY. WAITING TO HEAR BACK FROM [address] TO SEE WHEN THEY CAN SEE THIS PATIENT. THEY WERE UNABLE TO VERIFY A START DATE AT THIS TIME DUE TO INCLEMENT WEATHER. CM FOLLOWING AND ASSISTING NEEDED. Loading Dock Helper: Lavern Rendon DCP- Discharge Planning Updated by [email or web address]: Lavern Rendon on 05/09/20 11:[address] Patient Name: THOMAS HIGGINS Admission Status: Elective Accout number: [id number] Admission Date: 05-03-2020 : 1980 Admission Diagnosis:PYOGENIC ARTHRITIS, UNSPECIFIED Attending: MARYJANE ROSE Current LOS: 6 Anticipated DC Date: Planned Disposition: Primary Insurance: [employer] MANAGED MEDICAID Discharge Planning Comments: CM MET WITH PATIENT AT BEDSIDE AFTER OBTAINING VERBAL CONSENT. DISCUSSED AVAILABILITY/NEEDS OF HOME HEALTH, REHAB, AND MEDICAL EQUIPMENT. PATIENT WILL NEED IV ANTIBIOTICS AND HOME HEALTH. REFERRAL FAXED TO [facility] FOR IV ANTIBIOTICS AND CARE FOR HOME HEALTH. WAITING CALL BACK TO SEE IF IV ANTIBIOTICS CAN BE SET UP TODAY AND HOME HEALTH START OF CARE TOMORROW. PATIENT VERBALLY AGREES TO BOTH COMPANIES FOR DC. CM TO FOLLOW AND ASSIST NEEDED. Loading Dock Helper: Lavern Rendon [facility]- Discharge Planning Updated by [email or web address]: Lavern Rendon on 05/09/20 10:[address] Patient Name: THOMAS HIGGINS Admission Status: Elective Accout number: [id number] Admission Date: 05-03-2020 : 1980 Admission Diagnosis:PYOGENIC ARTHRITIS, UNSPECIFIED Attending: MARYJANE ROSE Current LOS: 6 Anticipated DC Date: Planned Disposition: Primary Insurance: [employer] MANAGED MEDICAID Discharge Planning Comments: I HAVE FAXED REFERRAL TO [facility] FOR IV INFSUIONS, I M WAITING CALL BACK TO SEE WHEN THEY CAN START. CM FOLLOWING. Loading Dock Helper: Lavern Rendon [facility] - Discharge Planning Initial Assessment Updated by [email or web address]: Lavern Rendon on 05/09/20 12:16 pm * Is the patient Alert and Oriented? Yes * PCP HARI * Preadmission Environment Home with Family * ADLs Independent * Community resources currently utilized None * Additional services required to return to the preadmission environment? Yes * Can the patient safely return to the preadmission environment? Yes * Has this patient been hospitalized within the prior 30 days at any hospital? No Last DP export: 05/11/20 8:15 a Patient Name: THOMAS HIGGINS Page 95514 at 1445 All edits/amendments must be made on the electronic document DICTATION DATE: 05/12/201443 WINDSCREEN FITTER: ANSLEY 05/12/201443 RPT#: [id number] DC DATE: STATUS: ADM IN [facility] [address] [place] [address] END OF REPORT
[2020-05-12 20:20] VITALS: BP 127/62
[2020-05-13 01:19] VITALS: BP 131/84
--- NOTE | 2020-05-13 05:10 | NUR ---
I have reviewed this patient and I concur with the Shift Assessment completed by the Licensed Practical Nurse today this shift.
[2020-05-13 09:35] VITALS: BP 157/86
[2020-05-13] MEDS ORDERED: ROCEPHIN 1 GM/D51 G1 IV (11:02)
--- NOTE | 2020-05-13 11:06 | NUR ---
I have reviewed this patient and I concur with the Shift Assessment completed by the Licensed Practical Nurse today this shift.
--- NOTE | 2020-05-13 12:50 | NUR ---
PATIENT DC HOME WITH IV ABX. WENT OVER DC PAPERWORK AND FOLLOW UP APPOINTMENTS WITH PATIENT. ALL QUESTIONS ANSWERED. NO OTHER NEEDS AT THIS TIME/ CONTINUE WITH PLAN OF CARE
--- NOTE | 2020-05-15 11:58 | MORECARE ---
CASE MANAGEMENT DISCHARGE SUMMARY PATIENT: THOMAS HIGGINS UNIT: [id number] ADM DATE: 05/03/20 AGE: 39 : 80 SEX: F ROOM/BED: D.2233 AUTHOR: JUAN A,DOC PHYSICIAN: REFERRING PHYSICIAN: MARYJANE ROSE DO DATE OF SERVICE: 05/15/20 Discharge Plan Patient Name: THOMAS HIGGINS Facility: [facility]:[place] : 1980 Planned Disposition: Anticipated Discharge Date: Discharge Date: 05/13/2020 Expected LOS: Initial Reviewer: [id number] Initial Review Date: 05/03/2020 Generated: 05/15/20 12:57 pm Comments DCP- Discharge Planning Updated by [email or web address]: Lavern Rendon on 05/12/20 1:[address] Patient Name: THOMAS HIGGINS Admission Status: Elective Accout number: [id number] Admission Date: 05-03-2020 : 1980 Admission Diagnosis:PYOGENIC ARTHRITIS, UNSPECIFIED Attending: MARYJANE ROSE Current LOS: 9 Anticipated DC Date: Planned Disposition: Primary Insurance: [employer]YS MANAGED MEDICAID Discharge Planning Comments: PATIENT CAN DC TO HOME AFTER EVENING DOSE OF IV ANTIBIOTICS. [facility] WILL DELIVER THE IV ANTIBIOTICS TO HER HOME TOMORROW. [address] HAS HER ON THEIR SCHEDULE TO SEE FRIDAY. CM TO FOLLOW AND ASSIST NEEDED. Chronometer Repairer: Lavern Rendon DCP- Discharge Planning Updated by [email or web address]: Lavern Rendon on 05/11/20 8:[address] Patient Name: THOMAS HIGGINS Admission Status: Elective Accout number: [id number] Admission Date: 05-03-2020 : 1980 Admission Diagnosis:PYOGENIC ARTHRITIS, UNSPECIFIED Attending: MARYJANE ROSE Current LOS: 8 Anticipated DC Date: Planned Disposition: Primary Insurance: NOV[employer]YS MANAGED MEDICAID Discharge Planning Comments: I SPOKE WITH FRANCINE AT [facility] TODAY AND THEY ARE CLOSED DUE TO WEATHER. I HAVE TALKED WITH LEROY NEWTON AND THEY ARE OPEN. I HAVE FAXED TO ORDER TO THEM TO SEE IF THEY CAN FILL AND GET TO US TODAY. WAITING TO HEAR BACK FROM [facility] TO SEE WHEN THEY CAN SEE THIS PATIENT. THEY WERE UNABLE TO VERIFY A START DATE AT THIS TIME DUE TO INCLEMENT WEATHER. CM FOLLOWING AND ASSISTING NEEDED. Chronometer Repairer: Lavern Rendon [facility]- Discharge Planning Updated by [email or web address]: Lavern Rendon on 05/09/20 11:[address] Patient Name: THOMAS HIGGINS Admission Status: Elective Accout number: [id number] Admission Date: 05-03-2020 : 1980 Admission Diagnosis:PYOGENIC ARTHRITIS, UNSPECIFIED Attending: MARYJANE ROSE Current LOS: 6 Anticipated DC Date: Planned Disposition: Primary Insurance: [employer] MANAGED MEDICAID Discharge Planning Comments: CM MET WITH PATIENT AT BEDSIDE AFTER OBTAINING VERBAL CONSENT. DISCUSSED AVAILABILITY/NEEDS OF HOME HEALTH, REHAB, AND MEDICAL EQUIPMENT. PATIENT WILL NEED IV ANTIBIOTICS AND HOME HEALTH. REFERRAL FAXED TO [facility] FOR IV ANTIBIOTICS AND CARE 4 FOR HOME HEALTH. WAITING CALL BACK TO SEE IF IV ANTIBIOTICS CAN BE SET UP TODAY AND HOME HEALTH START OF CARE TOMORROW. PATIENT VERBALLY AGREES TO BOTH COMPANIES FOR DC. CM TO FOLLOW AND ASSIST NEEDED. Chronometer Repairer: Lavern Rendon [facility]- Discharge Planning Updated by [email or web address]: Lavern Rendon on 05/09/20 10:[address] Patient Name: THOMAS HIGGINS Admission Status: Elective Accout number: [id number] Admission Date: 05-03-2020 : 1980 Admission Diagnosis:PYOGENIC ARTHRITIS, UNSPECIFIED Attending: MARYJANE ROSE Current LOS: 6 Anticipated DC Date: Planned Disposition: Primary Insurance: [employer] MANAGED MEDICAID Discharge Planning Comments: I HAVE FAXED REFERRAL TO [facility] FOR IV INFSUIONS, I M WAITING CALL BACK TO SEE WHEN THEY CAN START. CM FOLLOWING. Chronometer Repairer: Lavern Rendon [facility] - Discharge Planning Initial Assessment Updated by [email or web address]: Lavern Rendon on 05/09/20 12:16 pm * Is the patient Alert and Oriented? Yes * PCP HARI * Preadmission Environment Home with Family * ADLs Independent * Community resources currently utilized None * Additional services required to return to the preadmission environment? Yes * Can the patient safely return to the preadmission environment? Yes * Has this patient been hospitalized within the prior 30 days at any hospital? No Last DP export: 05/12/20 1:45 p Patient Name: THOMAS HIGGINS Page 30348 at 1158 All edits/amendments must be made on the electronic document DICTATION DATE: 05/15/201156 SOCIAL SERVICE TECHNICIAN: ANSLEY 05/15/201156 RPT#: [id number] DC DATE:05/13/20 STATUS: DIS IN [facility] [address] [place] [address] END OF REPORT
== END 2020-05-13 13:53 | disposition home health service (06) | DRG 493 ==
LOC: D.SDCHOLD 15:16 → D.MS 15:16
PROVIDERS: ADMIT Orthopaedic Surgery; ATTEND Orthopaedic Surgery
PROC: 05HM33Z Insertion of Infusion Device into Right Internal Jugular Vein, Percutaneous Approach (ICD-10-PCS; 2020-05-03)
PROC: 0SPG04Z Removal of Internal Fixation Device from Left Ankle Joint, Open Approach (ICD-10-PCS; principal; 2020-05-03 15:30)
PROC: 05HY33Z Insertion of Infusion Device into Upper Vein, Percutaneous Approach (ICD-10-PCS; 2020-05-04)
PROC: 05HY33Z Insertion of Infusion Device into Upper Vein, Percutaneous Approach (ICD-10-PCS; 2020-05-04)
PROC: 05HY33Z Insertion of Infusion Device into Upper Vein, Percutaneous Approach (ICD-10-PCS; 2020-05-09)
DX: T84.69XA Infection and inflammatory reaction due to internal fixation device of other site, initial encounter (principal); F17.203 Nicotine dependence unspecified, with withdrawal; K21.9 Gastro-esophageal reflux disease without esophagitis

== ENCOUNTER → 2020-05-22 17:33 | Outpatient (CLI) | payer OTHER ==
[2020-05-05 12:57] VITALS: BMI 35.4
[~2020-05-22 17:33] MED LIST changes: +ATIVAN0.5 MG PO; +CELEXA20 MG PO; +ROCEPHIN 1 GM/D51 G1 IV; +SUBOXONE 2 MG-01 TAB SL; +VISTARIL50 MG PO; +Vibramycin 100 MG/D5 IV; +ZOFRAN ODT4 MG/UDTAB PO
[2020-05-22 17:45] LABS: BASOPHILS 1.6 % (0-2); EOSINOPHILS 4.3 % (0-7); HEMATOCRIT 37.1 % (36.0-48.0); HEMOGLOBIN 12.2 g/dL (12-16); IMMATURE GRANULOCYTES 0.2 % (0-5); LYMPHOCYTE ABS# 1.53 10x3/uL (1.18-3.74); LYMPHOCYTES 34.9 % (15-50); MCH 29.7 pg (26.0-34.0); MCHC 32.9 g/dL (31.0-37.0); MCV 90.3 fL (80.0-100.0); MEAN PLATELET VOLUME 11.8 fL (7.4-10.4); MONOCYTES 8.4 % (2-11); NEUTROPHIL ABS# 2.21 10x3/uL (1.56-6.13); NEUTROPHILS 50.6 % (40-80); PLATELET COUNT 225 10x3/uL (130-400); RBC 4.11 10x6/uL (4.00-5.40); RDW 13.7 % (11.5-14.5); WBC 4.4 10x3/uL (4.8-10.8)
[2020-05-22 18:04] LABS: C-REACTIVE PROTEIN 0.5 mg/dL (0.0-0.9); CREATININE - SERUM 0.7 mg/dL (0.6-1.3)
[2020-05-22 19:12] LABS: ERYTHROCYTE SEDIMENTATION RATE 24 mm/hr (0-20)
== END | disposition home or self-care (01) ==
LOC: D.LABREF 17:33
PROVIDERS: ATTEND Emergency Medicine
DX: M86.172 Other acute osteomyelitis, left ankle and foot (principal); Z45.2 Encounter for adjustment and management of vascular access device; Z79.2 Long term (current) use of antibiotics

== ENCOUNTER → 2020-05-29 15:58 | Outpatient (CLI) | payer OTHER ==
[2020-05-05 12:57] VITALS: BMI 35.4
[2020-05-29 16:32] LABS: BASOPHILS 0.8 % (0-2); EOSINOPHILS 2.8 % (0-7); HEMATOCRIT 35.9 % (36.0-48.0); LYMPHOCYTES 36.1 % (15-50); MCH 30.1 pg (26.0-34.0); MCHC 33.4 g/dL (31.0-37.0); MEAN PLATELET VOLUME 12.2 fL (7.4-10.4); MONOCYTES 6.4 % (2-11); NEUTROPHIL ABS# 2.09 10x3/uL (1.56-6.13); NEUTROPHILS 53.9 % (40-80); PLATELET COUNT 257 10x3/uL (130-400); RBC 3.99 10x6/uL (4.00-5.40); RDW 13.8 % (11.5-14.5); WBC 3.9 10x3/uL (4.8-10.8)
[2020-05-29 16:33] LABS: C-REACTIVE PROTEIN 0.2 mg/dL (0.0-0.9); CREATININE - SERUM 0.8 mg/dL (0.6-1.3)
[2020-05-29 17:42] LABS: ERYTHROCYTE SEDIMENTATION RATE 15 mm/hr (0-20)
== END | disposition home or self-care (01) ==
LOC: D.LABREF 15:58
PROVIDERS: ATTEND Emergency Medicine
DX: M86.172 Other acute osteomyelitis, left ankle and foot (principal); Z79.2 Long term (current) use of antibiotics; Z45.2 Encounter for adjustment and management of vascular access device

== ENCOUNTER → 2020-06-06 15:46 | Outpatient (CLI) | payer OTHER ==
[2020-05-05 12:57] VITALS: BMI 35.4
[2020-06-06 19:00] LABS: BASOPHILS 0.6 % (0-2); EOSINOPHILS 3.2 % (0-7); HEMATOCRIT 38.7 % (36.0-48.0); HEMOGLOBIN 12.6 g/dL (12-16); LYMPHOCYTES 43.6 % (15-50); MCH 29.4 pg (26.0-34.0); MCHC 32.6 g/dL (31.0-37.0); MCV 90.4 fL (80.0-100.0); MEAN PLATELET VOLUME 11.8 fL (7.4-10.4); MONOCYTES 8.7 % (2-11); NEUTROPHIL ABS# 1.51 10x3/uL (1.56-6.13); NEUTROPHILS 43.9 % (40-80); RBC 4.28 10x6/uL (4.00-5.40); RDW 13.8 % (11.5-14.5); WBC 3.4 10x3/uL (4.8-10.8)
[2020-06-06 19:07] LABS: C-REACTIVE PROTEIN 0.5 mg/dL (0.0-0.9); CREATININE - SERUM 0.7 mg/dL (0.6-1.3)
[2020-06-06 19:30] LABS: PLATELET COUNT 199 10x3/uL (130-400)
[2020-06-06 20:16] LABS: ERYTHROCYTE SEDIMENTATION RATE 5 mm/hr (0-20)
== END | disposition home or self-care (01) ==
LOC: D.LABREF 15:46
PROVIDERS: ATTEND Orthopaedic Surgery
DX: T84.59XA Infection and inflammatory reaction due to other internal joint prosthesis, initial encounter (principal)

== ENCOUNTER → 2020-06-12 11:32 | Outpatient (CLI) | payer OTHER ==
[2020-05-05 12:57] VITALS: BMI 35.4
[2020-06-12 11:50] LABS: C-REACTIVE PROTEIN 0.2 mg/dL (0.0-0.9); CREATININE - SERUM 0.7 mg/dL (0.6-1.3)
[2020-06-12 11:56] LABS: BASOPHILS 0.7 % (0-2); EOSINOPHILS 3.5 % (0-7); HEMOGLOBIN 12.5 g/dL (12-16); IMMATURE GRANULOCYTES 0.2 % (0-5); LYMPHOCYTE ABS# 1.51 10x3/uL (1.18-3.74); LYMPHOCYTES 35.7 % (15-50); MCH 29.7 pg (26.0-34.0); MCHC 32.9 g/dL (31.0-37.0); MCV 90.3 fL (80.0-100.0); MEAN PLATELET VOLUME 11.9 fL (7.4-10.4); MONOCYTES 6.9 % (2-11); NEUTROPHIL ABS# 2.24 10x3/uL (1.56-6.13); PLATELET COUNT 183 10x3/uL (130-400); RBC 4.21 10x6/uL (4.00-5.40); RDW 13.8 % (11.5-14.5); WBC 4.2 10x3/uL (4.8-10.8)
[2020-06-12 14:23] LABS: ERYTHROCYTE SEDIMENTATION RATE 17 mm/hr (0-20)
== END | disposition home or self-care (01) ==
LOC: D.LABREF 11:32
PROVIDERS: ATTEND Orthopaedic Surgery
DX: M86.172 Other acute osteomyelitis, left ankle and foot (principal)